=== PATIENT | male | born 1960 | race Two or more races ===

== ENCOUNTER 2017-01-26 19:44 | Inpatient (IN) | payer BC, OTHER ==
[~2017-01-26] VITALS: Ht 177.8 cm; Wt 108.0 kg
[2017-01-26] MEDS ORDERED: IV NORMAL SALINE 1000ML BAG 1,000 ML IV SCH (20:04)
[2017-01-26 20:11] LABS: BASO # 0.1 x10^3/uL (0.0-0.2); BASO % 1 % (0-3); EOS % 3 % (0-3); HEMATOCRIT 42.7 % (39.0-53.0); HEMOGLOBIN 14.3 g/dL (13.0-17.5); LYMPH # 2.4 x10^3/uL (1.0-4.8); LYMPH % 29 % (24-48); MEAN CORPUSCULAR HEMOGLOBIN 32 pg (25-35); MEAN CORPUSCULAR HGB CONC 34 g/dL (31-37); MEAN CORPUSCULAR VOLUME 96 fL (79-100); MONO % 10 % (0-9); NEUT % 56 % (31-73); PLATELET COUNT 272 x10^3/uL (140-400); RED BLOOD COUNT 4.44 x10^6/uL (4.30-5.70); RED CELL DISTRIBUTION WIDTH 13.2 % (11.5-14.5); WHITE BLOOD COUNT 8.2 x10^3/uL (4.0-11.0)
[2017-01-26] MEDS ORDERED: ASPIRIN CHEWABLE 81 MG TABLET. PO ONE (20:15)
[2017-01-26 20:22] LABS: CREATININE 1.2 mg/dL (0.7-1.3); GFR 62.4; POTASSIUM 3.5 mmol/L (3.5-5.1)
[2017-01-26 20:28] LABS: ALBUMIN 3.3 g/dL (3.4-5.0); ALBUMIN/GLOBULIN RATIO 0.8 (1.0-1.7); TOTAL BILIRUBIN 0.3 mg/dL (0.2-1.0); TOTAL PROTEIN 7.2 g/dL (6.4-8.2)
[2017-01-26] MEDS ORDERED: ONDANSETRON PF 4 MG/2 ML VIAL. IV PRN (20:45)
[2017-01-26] MEDS ORDERED: MORPHINE SULFATE 4 MG/ML DISP.SYRIN. IV PRN (20:45)
--- NOTE | 2017-01-26 21:08 | PHYS DOC ---
Past Medical History Past Medical History: Cancer, High Cholesterol, Other Additional Past Medical Histor: PROSTATE CA, GOUT Past Surgical History: Appendectomy, Cancer Surgery, Other Additional Past Surgical Histo: PROSTATECTOMY, RIGHT FOOT Alcohol Use: None Drug Use: None Adult General Chief Complaint Chief Complaint: CHEST PAIN HPI HPI 56-year-old male without significant past medical history now presents to the emergency department complaining of chest pressure today. Earlier tonight. Patient experienced pressure in the upper chest rating to his left arm with tingling. He denies nausea vomiting sweating or shortness of breath. Patient denies identifiable exertional pain prior to this episode. He has no productive cough or fever. No pleuritic pain. Pain is not reproducible with movement. More than 5 years ago he had a negative stress test but not since that time. He is not under the care of a well surveying engineer. Patient has never been told that he had any coronary artery disease. He does not smoke have high blood pressure high cholesterol diabetes or family history that he is aware Review of Systems Review of Systems Constitutional: Denies fever or chills [] Eyes: Denies change in visual acuity, redness, or eye pain [] HENT: Denies nasal congestion or sore throat [] Respiratory: Denies cough or shortness of breath [] Cardiovascular: No additional information not addressed in HPI [] GI: Denies abdominal pain, nausea, vomiting, bloody stools or diarrhea [] : Denies dysuria or hematuria [] Musculoskeletal: Denies back pain or joint pain [] Integument: Denies rash or skin lesions [] Neurologic: Denies headache, focal weakness or sensory changes [] Endocrine: Denies polyuria or polydipsia [] Current Medications Current Medications Current Medications Medications (Trade) Dose Ordered Sig/Kelli Start Time Stop Time Status Last Admin Dose Admin Aspirin (Children'S Aspirin) 324 mg 1X ONCE 01/26/17 20:15 01/26/17 20:16 DC 01/26/17 20:33 324 MG Sodium Chloride 1,000 ml @ 100 mls/hr Q10H 01/26/17 20:04 01/27/17 06:03 01/26/17 20:34 100 MLS/HR Allergies Allergies Allergies Coded Allergies Type Severity Reaction Last Updated Verified No Known Drug Allergies 10/06/15 No Physical Exam Physical Exam Constitutional: Well developed, well nourished, no acute distress, non-toxic appearance. [] HENT: Normocephalic, atraumatic, bilateral external ears normal, oropharynx moist, no oral exudates, nose normal. [] Eyes: PERRLA, EOMI, conjunctiva normal, no discharge. [] Neck: Normal range of motion, no tenderness, supple, no stridor. [] Cardiovascular:Heart rate regular rhythm, no murmur [] Lungs & Thorax: Bilateral breath sounds clear to auscultation [] Abdomen: Bowel sounds normal, soft, no tenderness, no masses, no pulsatile masses. [] Skin: Warm, dry, no erythema, no rash. [] Back: No tenderness, no CVA tenderness. [] Extremities: No tenderness, no cyanosis, no clubbing, ROM intact, no edema. [] Neurologic: Alert and oriented X 3, normal motor function, normal sensory function, no focal deficits noted. [] Psychologic: Affect normal, judgement normal, mood normal. [] Current Patient Data Vital Signs Vital Signs Date Time Temp Pulse Resp B/P (MAP) Pulse Ox O2 Delivery O2 Flow Rate FiO2 01/26/17 19:50 98.1 79 18 116/74 (88) 100 Room Air 98.1 Lab Values Laboratory Tests Test 01/26/17 20:00 White Blood Count 8.2 x10^3/uL (4.0-11.0) Red Blood Count 4.44 x10^6/uL (4.30-5.70) Hemoglobin 14.3 g/dL (13.0-17.5) Hematocrit 42.7 % (39.0-53.0) Mean Corpuscular Volume 96 fL (79-100) Mean Corpuscular Hemoglobin 32 pg (25-35) Mean Corpuscular Hemoglobin Concent 34 g/dL (31-37) Red Cell Distribution Width 13.2 % (11.5-14.5) Platelet Count 272 x10^3/uL (140-400) Neutrophils (%) (Auto) 56 % (31-73) Lymphocytes (%) (Auto) 29 % (24-48) Monocytes (%) (Auto) 10 % (0-9) H Eosinophils (%) (Auto) 3 % (0-3) Basophils (%) (Auto) 1 % (0-3) Neutrophils # (Auto) 4.6 x10^3uL (1.8-7.7) Lymphocytes # (Auto) 2.4 x10^3/uL (1.0-4.8) Monocytes # (Auto) 0.8 x10^3/uL (0.0-1.1) Eosinophils # (Auto) 0.3 x10^3/uL (0.0-0.7) Basophils # (Auto) 0.1 x10^3/uL (0.0-0.2) Sodium Level 142 mmol/L (136-145) Potassium Level 3.5 mmol/L (3.5-5.1) Chloride Level 107 mmol/L (98-107) Carbon Dioxide Level 28 mmol/L (21-32) Anion Gap 7 (6-14) Blood Urea Nitrogen 18 mg/dL (8-26) Creatinine 1.2 mg/dL (0.7-1.3) Estimated GFR (Cockcroft-Gault) 62.4 BUN/Creatinine Ratio 15 (6-20) Glucose Level 124 mg/dL (70-99) H Calcium Level 9.0 mg/dL (8.5-10.1) Total Bilirubin 0.3 mg/dL (0.2-1.0) Aspartate Amino Transferase (AST) 23 U/L (15-37) Alanine Aminotransferase (ALT) 37 U/L (16-63) Alkaline Phosphatase 106 U/L (46-116) Troponin I Quantitative < 0.017 ng/mL (0.000-0.055) Total Protein 7.2 g/dL (6.4-8.2) Albumin 3.3 g/dL (3.4-5.0) L Albumin/Globulin Ratio 0.8 (1.0-1.7) L Laboratory Tests 01/26/17 20:00 Laboratory Tests 01/26/17 20:00 EKG EKG EKG with normal sinus rhythm at 74 normal axis no STEMI interpreted by me[] Radiology/Procedures Radiology/Procedures Chest x-ray no acute disease interpreted by me[] Course & Med Decision Making Course & Med Decision Making Pertinent Labs and Imaging studies reviewed. (See chart for details) Signs and symptoms consistent with chest pain a possible cardiac etiology in a 56-year-old male with no recent cardiac workup. He is currently pain-free. Aspirin given. EKG and chest x-ray unremarkable. Labs benign with negative troponin. Case discussed with Dr. Piper hospitalist on-call who is aware of findings and requests inpatient admission to her service for further cardiac workup and treatment as needed. Vital signs stable [] Dragon Disclaimer Dragon Disclaimer This electronic medical record was generated, in whole or in part, using a voice recognition dictation system. Departure Departure Impression: Primary Impression: Chest pain Disposition: ADMITTED INPATIENT Admitting Physician: Carmen Reddy Condition: STABLE Referrals: ALBER GATES (PCP) JAVIER IRELAND MD Jan 26, 2017 21:08
[2017-01-26 21:26] VITALS: BP 116/66
[2017-01-26 22:34] VITALS: BP 116/66
[2017-01-26] MEDS ORDERED: FEBU80TA2 PO (22:40)
[2017-01-26 23:00] VITALS: BP 102/56
[2017-01-27 03:00] VITALS: BP 94/58
[2017-01-27 07:00] VITALS: BP 104/70
--- NOTE | 2017-01-27 07:04 | EKG ---
[facility] [address] [place] [address] Test Date: 2017-01-26 Test Time: 19:55:54 Pat Name: WALLACE HERNANDEZ Department: Room: Gender: M Edi Developer: : 1960 Requested By: JAVIER IRELAND Order Number: [id number] Reading MD: Measurements Intervals [place] Rate: 74 P: 47 MO: 190 QRS: 31 QRSD: 92 T: 35 QT: 378 QTc: 425 Interpretive Statements SINUS RHYTHM NORMAL ECG RI6.01 No previous ECG available for comparison
--- NOTE | 2017-01-27 08:11 | RAD ---
Portable chest, 01/26/2017: History: Weakness, chest pain Comparison is made to a study from 10/06/2015. The left ventricle is mildly prominent. The pulmonary vascularity is normal. No pulmonary infiltrates are seen. There is no evidence of pleural fluid. IMPRESSION: No acute cardiopulmonary abnormality is detected.
--- NOTE | 2017-01-27 10:15 | PDOC2 ---
TORREY VEE DREDGE MATE 01/27/17 1015: CARDIAC CONSULT DATE OF CONSULT Date of Consult DATE: 01/27/17 TIME: 09:57 REASON FOR CONSULT Reason for Consult: Chest pain REFERRING PHYSICIAN Referring Physician: Carl SOURCE Source: Chart review, Patient HISTORY OF PRESENT ILLNESS HISTORY OF PRESENT ILLNESS This is a pleasant 56 yo male admitted for complains of neck pain. Repeatedly reports no chest pain but more of neck discomfort which I duplicated with neck ROM. Also her tingling and numbness to her left arm particularly to his LFA occurs when albow is on flexion position. His neck discomofort which is squeezing in sensation is worse when laying supine, getting up and turning head sideways. 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 SHe actually wnet to the chiropractor yesterday and had a massage yesterday. He sees a [facility] physician who is likely from pain management who has given him shots to his neck before. He also fell, lost his footing, last Wednesday and hit his right ribcage which since then he started having intermittent pain to his RUQ which is duplicated with palpation. Denies any nausea, frequent dizziness, palpitations, nor diaphoresis. Denies any past CAD, VTE. PAST MEDICAL HISTORY Cardiovascular: Hyperlipidemia Pulmonary: No pertinent hx CENTRAL NERVOUS SYSTEM: Other (No pertinent history) GI: No pertinent hx Heme/Onc: No pertinent hx Hepatobiliary: No pertinent hx Psych: No pertinent hx Musculoskeletal: Osteoarthritis, Other (neck pain) Rheumatologic: Gout Renal/: Prostate Ca. Endocrine: No pertinent hx Dermatology: No pertinent hx PAST SURGICAL HISTORY Past Surgical History: Appendectomy, Other (prostatectomy) FAMILY HISTORY Family History noncontributory to CV SOCIAL HISTORY Smoke: No ALCOHOL: none Drugs: None Lives: with Family CURRENT MEDICATIONS CURRENT MEDICATIONS Current Medications Medications (Trade) Dose Ordered Sig/Kelli Route PRN Reason Start Time Stop Time Status Last Admin Dose Admin Sodium Chloride 1,000 ml @ 100 mls/hr Q10H IV 01/26/17 20:04 01/27/17 06:03 DC 01/26/17 20:34 Aspirin (Children'S Aspirin) 324 mg 1X ONCE PO 01/26/17 20:15 01/26/17 20:16 DC 01/26/17 20:33 ALLERGIES ALLERGIES: Coded Allergies: No Known Drug Allergies (Unverified , 10/06/15) ROS Review of System 14 point ROS evaluated with pertinent positives noted per HPI PHYSICAL EXAM General: Alert, Oriented X3, Cooperative, No acute distress HEENT: Atraumatic, Mucous membr. moist/pink Lungs: Clear to auscultation, Normal air movement Heart: Regular rate (SR), Normal S1, Normal S2, No murmurs Abdomen: Soft, No tenderness Extremities: No cyanosis, No edema Skin: No breakdown, No significant lesion Neuro: Normal speech, Sensation intact Psych/Mental Status: Mental status NL, Mood NL MUSCULOSKELETAL: Osteoarthritic changes both hands VITALS VITALS Vital Signs Date Time Temp Pulse Resp B/P (MAP) Pulse Ox O2 Delivery O2 Flow Rate FiO2 01/27/17 07:00 97.5 56 20 104/70 (81) 97 Room Air 97.5 LABS Lab: Laboratory Tests Test 01/26/17 20:00 01/27/17 03:00 01/27/17 08:25 White Blood Count 8.2 x10^3/uL (4.0-11.0) Red Blood Count 4.44 x10^6/uL (4.30-5.70) Hemoglobin 14.3 g/dL (13.0-17.5) Hematocrit 42.7 % (39.0-53.0) Mean Corpuscular Volume 96 fL (79-100) Mean Corpuscular Hemoglobin 32 pg (25-35) Mean Corpuscular Hemoglobin Concent 34 g/dL (31-37) Red Cell Distribution Width 13.2 % (11.5-14.5) Platelet Count 272 x10^3/uL (140-400) Neutrophils (%) (Auto) 56 % (31-73) Lymphocytes (%) (Auto) 29 % (24-48) Monocytes (%) (Auto) 10 % (0-9) Eosinophils (%) (Auto) 3 % (0-3) Basophils (%) (Auto) 1 % (0-3) Neutrophils # (Auto) 4.6 x10^3uL (1.8-7.7) Lymphocytes # (Auto) 2.4 x10^3/uL (1.0-4.8) Monocytes # (Auto) 0.8 x10^3/uL (0.0-1.1) Eosinophils # (Auto) 0.3 x10^3/uL (0.0-0.7) Basophils # (Auto) 0.1 x10^3/uL (0.0-0.2) Sodium Level 142 mmol/L (136-145) Potassium Level 3.5 mmol/L (3.5-5.1) Chloride Level 107 mmol/L (98-107) Carbon Dioxide Level 28 mmol/L (21-32) Anion Gap 7 (6-14) Blood Urea Nitrogen 18 mg/dL (8-26) Creatinine 1.2 mg/dL (0.7-1.3) Estimated GFR (Cockcroft-Gault) 62.4 BUN/Creatinine Ratio 15 (6-20) Glucose Level 124 mg/dL (70-99) Calcium Level 9.0 mg/dL (8.5-10.1) Total Bilirubin 0.3 mg/dL (0.2-1.0) Aspartate Amino Transf (AST/SGOT) 23 U/L (15-37) Alanine Aminotransferase (ALT/SGPT) 37 U/L (16-63) Alkaline Phosphatase 106 U/L (46-116) Troponin I Quantitative < 0.017 ng/mL (0.000-0.055) < 0.017 ng/mL (0.000-0.055) < 0.017 ng/mL (0.000-0.055) Total Protein 7.2 g/dL (6.4-8.2) Albumin 3.3 g/dL (3.4-5.0) Albumin/Globulin Ratio 0.8 (1.0-1.7) ASSESSMENT/PLAN ASSESSMENT/PLAN 1. Atypical CP: Troponin series normal, EKG SR without acute changes. Noncardiac. MSK related 2. Possible Cervical radiculopathy and/or left ulnar nerve entrapment syndrome 3. HLP 4. Gout 5. Mechanical fall: right rib cage pain, hit side to tub last Wednesday Recommendations 1. Recommend consulting Dr. Mojica. 2. No further workup may DC per cardiac standpoint 3. Lipid panel. ECASA 81 mg could be started as well for primary prevention 4. Discussed CAD symptoms and if any significant symptoms arises then encouraged to call our office for appointment. Problems: TOM BRIONES MD 01/27/17 1616: CARDIAC CONSULT ALLERGIES ALLERGIES: Coded Allergies: No Known Drug Allergies (Unverified , 10/06/15) ASSESSMENT/PLAN ASSESSMENT/PLAN Patient seen and examined. Agree with DREDGE MATE's assessment and plan. Neck pain most probably musculoskeletal. EKG without acute changes. No further cardiac workup is indicated at this time. Thank you for your consultation. Problems: TORREY VEE APRN Jan 27, 2017 10:15 TOM BRIONES MD Jan 27, 2017 16:16
[2017-01-27 11:00] VITALS: BP 101/66
[2017-01-27 11:15] LABS: CHOLESTEROL/HDL RATIO 4.6
[2017-01-27] MEDS ORDERED: traMADol 50 MG TABLET PO PRN (11:45)
[2017-01-27] MEDS ORDERED: ONDANSETRON PF 4 MG/2 ML VIAL. IV PRN (11:45)
[2017-01-27] MEDS ORDERED: ACETAMINOPHEN 325 MG TABLET. PO PRN (11:45)
[2017-01-27] MEDS ORDERED: hydrALAZINE 20 MG/ML VIAL. IVP PRN (11:45)
[2017-01-27] MEDS ORDERED: DOCUSATE SODIUM 100 MG CAPSULE. PO PRN (11:45)
[2017-01-27] MEDS ORDERED: MORPHINE SULFATE 2 MG/ML DISP.SYRIN. IV PRN (11:45)
[2017-01-27] MEDS ORDERED: FEBUXOSTAT 40 MG TABLET PO SCH (13:00)
--- NOTE | 2017-01-27 13:33 | PDOC1 ---
History and Physical Date of Admission Date of Admission 01/27/17 Identification/Chief Complaint Chief Complaint neck pain, bl hands numbness Problems: Source Source: Chart review, Patient History of Present Illness History of Present Illness HPI HPI 56-year-old male with chronic neck pain fu at , comes for neck pain, bl hands numbness. He has been having neck pain for while, cannot tell me the details tho, fu with and got steroid injection. 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 also c/o bl hands numbness when woke up, especially when he lift them up. he denies chest pain, but his said he had chest pain last night. He did hit his right abd last week by a chair when working, better tho. no diaphoresis, N/V, sob, cough, fever, chills, diarrhea. neck muscle tenderness. EKG, CE neg. Past Medical History Cardiovascular: Hyperlipidemia Pulmonary: No pertinent hx CENTRAL NERVOUS SYSTEM: Other (No pertinent history) GI: No pertinent hx Heme/Onc: No pertinent hx Hepatobiliary: No pertinent hx Psych: No pertinent hx Rheumatologic: Gout Renal/: Prostate Ca. Endocrine: No pertinent hx Dermatology: No pertinent hx Past Surgical History Past Surgical History: Appendectomy, Other (prostatectomy) Social History Smoke: No ALCOHOL: none Drugs: None Current Medications Current Medications Current Medications Medications (Trade) Dose Ordered Sig/Kelli Start Time Stop Time Status Last Admin Dose Admin Acetaminophen (Tylenol) 650 mg PRN Q6HRS PRN 01/27/17 11:45 Aspirin (Children'S Aspirin) 324 mg 1X ONCE 01/26/17 20:15 01/26/17 20:16 DC 01/26/17 20:33 324 MG Docusate Sodium (Colace) 100 mg PRN DAILY PRN 01/27/17 11:45 Febuxostat (Uloric) 80 mg DAILY 01/27/17 13:00 Hydralazine HCl (Apresoline) 10 mg PRN Q4HRS PRN 01/27/17 11:45 Morphine Sulfate 2 mg PRN Q2HR PRN 01/27/17 11:45 Ondansetron HCl (Zofran) 4 mg PRN Q6HRS PRN 01/27/17 11:45 Sodium Chloride 1,000 ml @ 100 mls/hr Q10H 01/26/17 20:04 01/27/17 06:03 DC 01/26/17 20:34 100 MLS/HR Tramadol HCl (Ultram) 50 mg PRN Q6HRS PRN 01/27/17 11:45 Allergies Allergies Allergies Coded Allergies Type Severity Reaction Last Updated Verified No Known Drug Allergies 10/06/15 No ROS Review of System CONSTITUTIONAL: No fever or chills EYES: No recent changes SKIN: No rash or itching CARDIOVASCULAR: No chest pain, syncope, palpitations, or edema RESPIRATORY: No SOB or cough GASTROINTESTINAL: No nausea, vomiting or abdominal pain NEUROLOGICAL: No headaches or weakness ENDOCRINE: No cold or heat intolerance GENITOURINARY: No urgency or frequency of urination MUSCULOSKELETAL: No back pain or joint pain LYMPHATICS: No enlarged lymph nodes PSYCHIATRIC: No anxiety or depression Physical Exam Physical Exam GEN.: No apparent distress. Alert and oriented. HEENT: Head is normocephalic, atraumatic NECK: Supple. LUNGS: Clear to auscultation. HEART: RRR, S1, S2 present. Peripheral pulses intact ABDOMEN: Soft, nontender. Positive bowel sounds. EXTREMITIES: Without any cyanosis. right neck muscle + tenderness. no ext weakness or sensation change. NEUROLOGIC: Normal speech, normal tone PSYCHIATRIC: Normal affect, normal mood. SKIN: No ulcerations Vitals Vitals Vital Signs Date Time Temp Pulse Resp B/P (MAP) Pulse Ox O2 Delivery O2 Flow Rate FiO2 01/27/17 11:00 97.5 52 20 101/66 (78) 97 Room Air 97.5 Labs Labs Laboratory Tests Test 01/26/17 20:00 01/27/17 03:00 01/27/17 08:25 White Blood Count 8.2 x10^3/uL (4.0-11.0) Red Blood Count 4.44 x10^6/uL (4.30-5.70) Hemoglobin 14.3 g/dL (13.0-17.5) Hematocrit 42.7 % (39.0-53.0) Mean Corpuscular Volume 96 fL (79-100) Mean Corpuscular Hemoglobin 32 pg (25-35) Mean Corpuscular Hemoglobin Concent 34 g/dL (31-37) Red Cell Distribution Width 13.2 % (11.5-14.5) Platelet Count 272 x10^3/uL (140-400) Neutrophils (%) (Auto) 56 % (31-73) Lymphocytes (%) (Auto) 29 % (24-48) Monocytes (%) (Auto) 10 % (0-9) Eosinophils (%) (Auto) 3 % (0-3) Basophils (%) (Auto) 1 % (0-3) Neutrophils # (Auto) 4.6 x10^3uL (1.8-7.7) Lymphocytes # (Auto) 2.4 x10^3/uL (1.0-4.8) Monocytes # (Auto) 0.8 x10^3/uL (0.0-1.1) Eosinophils # (Auto) 0.3 x10^3/uL (0.0-0.7) Basophils # (Auto) 0.1 x10^3/uL (0.0-0.2) Sodium Level 142 mmol/L (136-145) Potassium Level 3.5 mmol/L (3.5-5.1) Chloride Level 107 mmol/L (98-107) Carbon Dioxide Level 28 mmol/L (21-32) Anion Gap 7 (6-14) Blood Urea Nitrogen 18 mg/dL (8-26) Creatinine 1.2 mg/dL (0.7-1.3) Estimated GFR (Cockcroft-Gault) 62.4 BUN/Creatinine Ratio 15 (6-20) Glucose Level 124 mg/dL (70-99) Calcium Level 9.0 mg/dL (8.5-10.1) Total Bilirubin 0.3 mg/dL (0.2-1.0) Aspartate Amino Transf (AST/SGOT) 23 U/L (15-37) Alanine Aminotransferase (ALT/SGPT) 37 U/L (16-63) Alkaline Phosphatase 106 U/L (46-116) Troponin I Quantitative < 0.017 ng/mL (0.000-0.055) < 0.017 ng/mL (0.000-0.055) < 0.017 ng/mL (0.000-0.055) Total Protein 7.2 g/dL (6.4-8.2) Albumin 3.3 g/dL (3.4-5.0) Albumin/Globulin Ratio 0.8 (1.0-1.7) Triglycerides Level 99 mg/dL (0-150) Cholesterol Level 182 mg/dL (0-200) LDL Cholesterol, Calculated 122 mg/dL (0-100) VLDL Cholesterol, Calculated 20 mg/dL (0-40) Non-HDL Cholesterol Calculated 142 mg/dL (0-129) HDL Cholesterol 40 mg/dL (40-60) Cholesterol/HDL Ratio 4.6 Laboratory Tests Test 01/26/17 20:00 01/27/17 03:00 01/27/17 08:25 White Blood Count 8.2 x10^3/uL (4.0-11.0) Red Blood Count 4.44 x10^6/uL (4.30-5.70) Hemoglobin 14.3 g/dL (13.0-17.5) Hematocrit 42.7 % (39.0-53.0) Mean Corpuscular Volume 96 fL (79-100) Mean Corpuscular Hemoglobin 32 pg (25-35) Mean Corpuscular Hemoglobin Concent 34 g/dL (31-37) Red Cell Distribution Width 13.2 % (11.5-14.5) Platelet Count 272 x10^3/uL (140-400) Neutrophils (%) (Auto) 56 % (31-73) Lymphocytes (%) (Auto) 29 % (24-48) Monocytes (%) (Auto) 10 % (0-9) Eosinophils (%) (Auto) 3 % (0-3) Basophils (%) (Auto) 1 % (0-3) Neutrophils # (Auto) 4.6 x10^3uL (1.8-7.7) Lymphocytes # (Auto) 2.4 x10^3/uL (1.0-4.8) Monocytes # (Auto) 0.8 x10^3/uL (0.0-1.1) Eosinophils # (Auto) 0.3 x10^3/uL (0.0-0.7) Basophils # (Auto) 0.1 x10^3/uL (0.0-0.2) Sodium Level 142 mmol/L (136-145) Potassium Level 3.5 mmol/L (3.5-5.1) Chloride Level 107 mmol/L (98-107) Carbon Dioxide Level 28 mmol/L (21-32) Anion Gap 7 (6-14) Blood Urea Nitrogen 18 mg/dL (8-26) Creatinine 1.2 mg/dL (0.7-1.3) Estimated GFR (Cockcroft-Gault) 62.4 BUN/Creatinine Ratio 15 (6-20) Glucose Level 124 mg/dL (70-99) Calcium Level 9.0 mg/dL (8.5-10.1) Total Bilirubin 0.3 mg/dL (0.2-1.0) Aspartate Amino Transf (AST/SGOT) 23 U/L (15-37) Alanine Aminotransferase (ALT/SGPT) 37 U/L (16-63) Alkaline Phosphatase 106 U/L (46-116) Troponin I Quantitative < 0.017 ng/mL (0.000-0.055) < 0.017 ng/mL (0.000-0.055) < 0.017 ng/mL (0.000-0.055) Total Protein 7.2 g/dL (6.4-8.2) Albumin 3.3 g/dL (3.4-5.0) Albumin/Globulin Ratio 0.8 (1.0-1.7) Triglycerides Level 99 mg/dL (0-150) Cholesterol Level 182 mg/dL (0-200) LDL Cholesterol, Calculated 122 mg/dL (0-100) VLDL Cholesterol, Calculated 20 mg/dL (0-40) Non-HDL Cholesterol Calculated 142 mg/dL (0-129) HDL Cholesterol 40 mg/dL (40-60) Cholesterol/HDL Ratio 4.6 VTE Prophylaxis Ordered VTE Prophylaxis Devices: Yes VTE Pharmacological Prophylaxi: Yes Assessment/Plan Assessment/Plan neck pain, bl hands numbness, need to rule out cervical spinal stenosis, likely muscular pain , neuropathy doubt chest pain or CAD hld h/o dowel pointer post sx morbid obesity plan: cont home meds card consulted, no intervention will do cervical MRI dr. Mojica consult pain control dvt ppx check [id number] JESUS VILLEDA MD Jan 27, 2017 13:33
[2017-01-27] MEDS ORDERED: ENOXAPARIN 40 MG/0.4 ML SYRINGE. SQ SCH (14:00)
[2017-01-27 15:00] VITALS: BP 114/67
--- NOTE | 2017-01-27 15:42 | RAD ---
MRI of the cervical spine without contrast 01/27/2017 CLINICAL HISTORY: Right-sided neck pain with bilateral hand numbness for several weeks. TECHNIQUE: Unenhanced T1-weighted, T2-weighted and inversion recovery sagittal and gradient echo and T2-weighted axial images of the cervical spine were obtained. FINDINGS: There is straightening of the normal cervical lordosis. Degenerative signal changes are seen involving all of the disks of the cervical spine. Degenerative signal changes are seen within the marrow surrounding these discs. The cervical spinal cord is normal in morphology, position, and signal characteristics. At the C2-3, C3-4 and C4-5 disc spaces there are minimal to mild generalized disc bulges. Degenerative changes are seen involving the uncovertebral and facet joints bilaterally. These findings do not result in significant central spinal canal or neural foraminal stenosis. At the C5-6 disc space there is a mild to moderate generalized disc bulge. This is eccentric to the right. Degenerative changes are seen involving the uncovertebral and facet joints, right greater than left. These findings efface the anterior and posterior CSF without resulting in significant central spinal canal stenosis. Mild to moderate right greater than left neural foraminal stenosis is seen. At the C6-7 disc space there is a mild generalized disc bulge. Degenerative changes are seen involving the uncovertebral and facet joints bilaterally. These findings when combined do not result in significant central spinal canal or neural foraminal stenosis. At the C7-T1 disc space there is a minimal generalized disc bulge. Degenerative changes are seen involving the facet joints bilaterally. These findings when combined do not result in significant central spinal canal or neural foraminal stenosis. IMPRESSION: Degenerative changes are seen throughout the cervical spine. These findings do not result in significant central spinal canal stenosis at any level. Mild to moderate right greater than left neural foraminal stenosis is seen at C5-6. Electronically signed by: Shawn Waller MD (01/27/2017 3:39 PM) [id number]
[2017-01-27] MEDS ORDERED: TIZA4TAB PO ×2 (17:22)
[2017-01-27] MEDS ORDERED: METH4TAB2 PO (17:22)
[2017-01-27] MEDS ORDERED: HYDR-2762 PO (17:22)
--- NOTE | 2017-01-27 18:06 | PDOC3 ---
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 Mojica Brief Hospital Course 56-year-old male with chronic neck pain fu at , comes for neck pain, bl hands numbness. He has been having neck pain for while, cannot tell me the details tho, fu with and got steroid injection. 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 also c/o bl hands numbness when woke up, especially when he lift them up. he denies chest pain, but his said he had chest pain last night. He did hit his right abd last week by a chair when working, better tho. neck muscle tenderness. EKG, CE neg. MRI CERVICAL done, showed DJD, no spinal stenosis. dr. Mojica CONSULTED, AGREE pt can go home today with pain meds, steroid and muscle relaxant. card consulted, no intervention. Patient History: Patient reports no known family medical history. Problems: Disposition home CONDITION AT DISCHARGE: Improved Diet regular Scheduled Febuxostat (Uloric), 1 TAB PO DAILY, (Reported) Methylprednisolone (Medrol), 1 PKG PO UD, (Reported) Scheduled PRN Hydrocodone Bit/Acetaminophen (Hydrocodone-Apap 7.5-325 ), 1 TAB PO PRN Q6HRS PRN for PAIN, (Reported) Tizanidine Hcl (Tizanidine Hcl), 4 MG PO QID PRN for MUSCLE SPASMS, (Reported) Tizanidine Hcl (Tizanidine Hcl), 4 MG PO Q6HRS PRN for MUSCLE SPASMS, (Reported) Follow Up pcp in 2 weeks JESUS VILLEDA MD Jan 27, 2017 18:06
--- NOTE | 2017-01-27 23:53 | CONS ---
DATE OF CONSULTATION: 01/27/2017 ATTENDING PHYSICIAN: Dr. Nitin Reddy. The patient was seen at the request of Dr. Reddy for rehab evaluation. HISTORY OF PRESENT ILLNESS: This is a 56-year-old right-handed male with chronic neck pain, being followed at [facility]. He also admits Dr. Stephanie Robison saw him and gave him shots in his neck with significant easing of the pain in December of this year. 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 He has been working hard. He got whole body massage yesterday and then when he was lying down, he continued to have neck pain and neck muscle spasm and continued with numbness in his upper extremities when he woke up this morning. He also felt little bit weak when he picks the arms up. He denied any chest pain, but his noted that he had chest pain last night. The patient with known hyperlipidemia, gouty arthritis, carcinoma of prostate. Not known allergic to any medication. He lives with his and has been independent with his mobility and self-care skills. He denies any trouble with his bowel or bladder control. The patient is status post prostatectomy and appendectomy. The patient had an MRI scan of the cervical vertebrae done this afternoon, which revealed multilevel degenerative disk disease and degenerative joint disease of the cervical vertebrae, without any significant central spinal or neural foraminal compromise, except [id number] right greater than left neural foraminal stenosis at C5-C6. PHYSICAL EXAMINATION: The patient, on physical examination today, revealed a middle-aged male. He is alert; oriented to time, place, person and circumstance and follows commands appropriately. Moves all 4 extremities voluntarily, where he had 4+/5 grade muscle strength. He had some pain on range of motion of his cervical spine, tenderness to palpate the cervical paraspinal muscles, extending over to upper trapezius muscle area. He had 2+ and symmetrical deep tendon reflexes and he had equal perception of light touch and pinprick sensation bilaterally. Negative Tinel's sign over median nerve at the wrist and ulnar nerve at the wrist and elbow. He is independent with bed mobility, transfers and walking. He can even walk on his tiptoes and on his heels and walk on a straight line one foot in front of other without any difficulty. ASSESSMENT: Exacerbation of chronic neck pain with radiological evidence of degenerative disk disease and degenerative joint disease of cervical vertebrae, with associated cervical paraspinal and upper trapezius muscle strain and cervical radiculitis and no clinical evidence of ongoing cervical radiculopathy or cervical spinal stenosis. RECOMMENDATIONS: To start him on Medrol Dosepak and muscle relaxant and narcotic pain medication. I have instructed him in a home program of physical modalities, trigger point massage and relax stretching exercise to his neck and upper trapezius muscles and advised him to avoid any activity that irritates his neck and shoulder and I would like to see him for followup. If the pain persist in the next 1-2 weeks, to present to pain clinic for consideration of cervical epidural steroid injections if the pain persists. Dr. Reddy, I appreciate asking me to participate in the care of this interesting patient. I will be glad to follow him with you as needed for the rehabilitation. NOEMI JEAN MD DR: VIC/india JOB#: [id number] / [id number] STEPHANIE Leon MD
== END 2017-01-27 18:18 | disposition home or self-care (01) | DRG 552 ==
LOC: ER 19:44 → 5 NORTH 20:35
PROVIDERS: ADMIT Internal Medicine; ATTEND Internal Medicine
DX: M54.2 Cervicalgia (principal); E66.01 Morbid (severe) obesity due to excess calories; Z90.89 Acquired absence of other organs; G62.9 Polyneuropathy, unspecified; E78.5 Hyperlipidemia, unspecified; E78.00 Pure hypercholesterolemia, unspecified; Z68.34 Body mass index [BMI] 34.0-34.9, adult; G89.29 Other chronic pain; M10.9 Gout, unspecified; M19.90 Unspecified osteoarthritis, unspecified site; Z85.46 Personal history of malignant neoplasm of prostate; Z90.49 Acquired absence of other specified parts of digestive tract; Z90.79 Acquired absence of other genital organ(s)
CPT/HCPCS: 36415; 71010; 72141; 80053; 80061; 84484; 85025; 93005; 96360; J7030; 99285-25